=== PATIENT | female | born 2000 | race Caucasian/White ===

== ENCOUNTER 2021-01-16 01:02 | Emergency (ER) | payer BC ==
[~2021-01-16] VITALS: Ht 170.2 cm; Wt 72.7 kg
[2021-01-16 03:30] VITALS: BP 108/58; PULSE 92; TEMP 98.3
[2021-01-16] MEDS ORDERED: PROAIR RES117 MCG/Ac IH (03:32)
== END 2021-01-16 03:30 | disposition home or self-care (01) ==
LOC: COL.ER 01:02
DX: T78.3XXA Angioneurotic edema, initial encounter (principal)
CPT/HCPCS: J1200; J2930; J7030

== ENCOUNTER 2021-02-12 14:07 | Emergency (ER) | payer BC ==
[~2021-02-12] VITALS: Ht 172.7 cm; Wt 72.7 kg
[~2021-02-12 14:07] MED LIST: PROAIR RES117 MCG/Ac IH
[2021-02-12 14:15] VITALS: TEMP 100.4
[2021-02-12] MEDS ORDERED: PREDNISONE20 MG PO (15:47)
[2021-02-12 15:56] VITALS: BP 112/85; PULSE 93
== END 2021-02-12 16:03 | disposition home or self-care (01) ==
LOC: COL.ER 14:07
DX: L50.9 Urticaria, unspecified (principal); Z87.891 Personal history of nicotine dependence
CPT/HCPCS: J1100

== ENCOUNTER 2021-03-23 11:01 | Outpatient (CLI) | payer BC ==
[~2021-03-23 11:01] MED LIST changes: +PREDNISONE20 MG PO
[2021-03-23 11:25] VITALS: BP 104/71; PULSE 66; TEMP 98.2
[2021-03-23] MEDS ORDERED: TRI FEMYNOR 281 EACH PO (11:30)
[2021-03-23] MEDS ORDERED: PEPCID 20MG TAB20 MG PO (11:31)
[2021-03-23] MEDS ORDERED: ZYRTEC 10MG10 MG PO (11:31)
[2021-03-23] MEDS ORDERED: BREO ELLIPTA 21 EACH IH (11:32)
[2021-03-23] MEDS ORDERED: BENADRYL25 M2 PO (11:32)
[2021-03-23] MEDS ORDERED: EPIPEN 2-PAK1 MG/ML IM (11:33)
--- NOTE | 2021-03-23 13:35 | NUR ---
Pt has remained in dept for 2 hrs following initial xolair injections. Pt has tolerated well, no s/s of mediaction reaction. She exits dept with steady gait.
== END 2021-03-23 13:35 | disposition home or self-care (01) ==
LOC: EUO 11:01
DX: Z79.899 Other long term (current) drug therapy (principal)
CPT/HCPCS: J2357

== ENCOUNTER 2021-04-24 13:53 | Outpatient (CLI) | payer BC ==
[~2021-04-24] VITALS: Ht 172.7 cm; Wt 73.9 kg
[~2021-04-24 13:53] MED LIST changes: +BENADRYL25 M2 PO; +BREO ELLIPTA 21 EACH IH; +EPIPEN 2-PAK1 MG/ML IM; +PEPCID 20MG TAB20 MG PO; +TRI FEMYNOR 281 EACH PO; +ZYRTEC 10MG10 MG PO
[2021-04-24 16:22] VITALS: BP 115/66; PULSE 70; TEMP 98.2
== END 2021-04-24 16:55 ==
LOC: EUO 13:53
DX: Z79.899 Other long term (current) drug therapy (principal)
CPT/HCPCS: J2357

== ENCOUNTER 2021-05-30 15:57 | Outpatient (CLI) | payer BC ==
[~2021-05-30] VITALS: Ht 172.7 cm; Wt 73.2 kg
[2021-05-30 16:18] VITALS: BP 119/83; PULSE 78; TEMP 97.8
== END 2021-05-30 19:48 | disposition home or self-care (01) ==
LOC: EUO 15:57
DX: Z79.899 Other long term (current) drug therapy (principal)
CPT/HCPCS: J2357

== ENCOUNTER 2021-06-27 15:46 | Outpatient (CLI) | payer BC ==
[~2021-06-27] VITALS: Ht 172.7 cm; Wt 72.7 kg
[2021-06-27 16:10] VITALS: BP 112/73; PULSE 62; TEMP 98.5
--- NOTE | 2021-06-27 16:22 | NUR ---
Message left with Deirdre Crowell's office as pt reports she will be recieving future xolair shots at their office. Request for DC order left.
== END 2021-06-27 16:23 | disposition home or self-care (01) ==
LOC: EUO 15:46
DX: Z79.899 Other long term (current) drug therapy (principal)
CPT/HCPCS: J2357